=== PATIENT | male | born 1980 | race African-American/Black ===

== ENCOUNTER 2022-09-01 01:36 | Day surgery (SDC) | payer OTHER, SELFPAY ==
[2022-08-30 13:07] VITALS: BMI 35.8
--- NOTE | 2022-09-01 07:55 | PM.HPGS ---
History of Present Illness History of Present Illness Consent: Risks, benefits, and alternatives have been discussed and questions answered. Patient agrees to proceed with procedure. Chief complaint: melena, GERD, anemia Narrative: Kamaljit Holcomb is a 42 year old male with olya, never had scopes. Review of Systems Constitutional: Constitutional: Denies headache(s) and Denies weakness Eyes: Eyes: Denies blurry vision ENT: Reports Normal hearing present, Denies headache(s) and Denies neck pain Cardiovascular: Cardiovascular: Denies chest pain and Denies dyspnea Respiratory: Respiratory: Denies dyspnea Gastrointestinal: Gastrointestinal: Reports no additional gastrointestinal complaints Genitourinary: Genitourinary: Denies dysuria Musculoskeletal: Musculoskeletal: Denies neck pain Integumentary/Breasts: Skin/Breast: Denies dry skin Neurologic: Reports Normal hearing present, Denies headache(s) and Denies weakness Psychiatric: Psychiatric: Denies anxiety Endocrine: Endocrine: Denies change in body appearance Hematologic/Lymphatic: Hematologic/Lymphatic: Denies easy bleeding Allergic/Immunologic: Allergic/Immunologic: Denies urticaria PMFSH Past Medical History Medical History (Updated 09/01/22 @ 07:55 by Tristen Ruiz MD) Iron deficiency anemia Meds Home Medications and Allergies Home Medications Medication Instructions Recorded Confirmed Type amlodipine 5 mg tablet 5 mg PO DAILY 08/30/22 08/30/22 History aspirin 81 mg tablet 81 mg PO DAILY 08/30/22 08/30/22 History atorvastatin 40 mg tablet 40 mg PO DAILY 08/30/22 08/30/22 History cholecalciferol (vitamin D3) 1,250 1,250 mcg PO WEEKLY 08/30/22 08/30/22 History mcg (50,000 unit) capsule hydrochlorothiazide 12.5 mg capsule 12.5 mg PO DAILY 08/30/22 08/30/22 History insulin NPH, beef-pork 100 unit/mL 30 unit subcut QAM 08/30/22 08/30/22 History subcutaneous suspension insulin NPH, beef-pork 100 unit/mL 40 unit subcut QPM 08/30/22 08/30/22 History subcutaneous suspension insulin regular human 100 unit/mL 1 sliding scale dose subcut 08/30/22 08/30/22 History injection solution USEASDIRECTD lisinopril 40 mg tablet 40 mg PO DAILY 08/30/22 08/30/22 History metformin 1,000 mg tablet 1,000 mg PO BID 08/30/22 08/30/22 History oxcarbazepine 600 mg tablet 600 mg PO BID 08/30/22 08/30/22 History vitamin A and D 1 applic topical DAILY 08/30/22 08/30/22 History Allergies Allergy/AdvReac Type Severity Reaction Status Date / Time No Known Allergies Allergy Verified 08/30/22 13:09 Exam Const: General: comfortable and no acute distress HENMT: Face/Nose/Sinus: Normal nares present Eyes: General: appearance normal, both eyes and all related structures Neck: Neck: no JVD Resp: Auscultation: clear to auscultation bilaterally Cardio: Rate: regular rate Rhythm: regular rhythm GI: Inspection: non-distended GI Palp: Yes Soft to palpation Skin: General skin exam: normal color Neuro: General: gait normal Speech: normal speech Extrem: General: normal to inspection Psych: Mental Status: mental status grossly normal Assessment and Plan Assessment and plan (1) Iron deficiency anemia: Code(s): D50.9 - Iron deficiency anemia, unspecified Status: Acute Assessment and Plan: egd and colonoscopy to assess if gi blood loss
[2022-09-01 08:01] VITALS: BP 161/90; PULSE 81; RESP 17; TEMP 36.3; O2SAT 100; BMI 34.4
[2022-09-01 08:01] LABS: Glucose Point of Care 115 mg/dl (65-105)
[2022-09-01] MEDS: LACTATED RINGERS 1,000 ML 150 ML IV CONT (08:10)
--- NOTE | 2022-09-01 08:13 | P.PNAN_ITS ---
Anes - Initial Pre Proc Eval Procedure: Operation Date: 09/01/22 08:30 Proposed Procedures p Esophagogastroduodenoscopy & Colonoscopy - Tristen Ruiz MD Date/Time: 09/01/22 08:13 Surgeon: Tristen Ruiz MD Pre Op Diagnosis: melena, GERD, anemia Patient Data Age: 42 Gender: M Height: 1.7 m Weight: 99.6 kg Last Vital Signs Temp 97.3 F L 09/01/22 08:01 Pulse 81 09/01/22 08:01 Resp 17 09/01/22 08:01 BP 161/90 H 09/01/22 08:01 Pulse Ox 100 09/01/22 08:01 O2 Del Method Room Air 09/01/22 08:01 Allergies Allergy/AdvReac Type Severity Reaction Status Date / Time No Known Allergies Allergy Verified 08/30/22 13:09 Home Medications Medication Instructions Recorded Confirmed Type amlodipine 5 mg tablet 5 mg PO DAILY 08/30/22 08/30/22 History aspirin 81 mg tablet 81 mg PO DAILY 08/30/22 08/30/22 History atorvastatin 40 mg tablet 40 mg PO DAILY 08/30/22 08/30/22 History cholecalciferol (vitamin D3) 1,250 1,250 mcg PO WEEKLY 08/30/22 08/30/22 History mcg (50,000 unit) capsule hydrochlorothiazide 12.5 mg capsule 12.5 mg PO DAILY 08/30/22 08/30/22 History insulin NPH, beef-pork 100 unit/mL 30 unit subcut QAM 08/30/22 08/30/22 History subcutaneous suspension insulin NPH, beef-pork 100 unit/mL 40 unit subcut QPM 08/30/22 08/30/22 History subcutaneous suspension insulin regular human 100 unit/mL 1 sliding scale dose subcut 08/30/22 08/30/22 History injection solution USEASDIRECTD lisinopril 40 mg tablet 40 mg PO DAILY 08/30/22 08/30/22 History metformin 1,000 mg tablet 1,000 mg PO BID 08/30/22 08/30/22 History oxcarbazepine 600 mg tablet 600 mg PO BID 08/30/22 08/30/22 History vitamin A and D 1 applic topical DAILY 08/30/22 08/30/22 History Laboratory Tests 09/01/22 07:58 POC Capillary Glucose 115 mg/dl H mg/dl (65-105) Patient hx anesthesia problems: none Family hx anesthesia problems: none Results Review: All pre-operative results and documents have been reviewed as part of the pre- operative evaluation. [facility] Past Medical History Medical History (Updated 09/01/22 @ 07:55 by Tristen Ruiz MD) Iron deficiency anemia Anes - Eval Final PreProcedure Day of Procedure 09/01/22 08:13 Patient weight: obese Heart: regular rate and rhythm Lungs: clear to auscultation Airway: Mallampati scale class II Neurological: alert and oriented Last oral intake: >/= 8 hours ASA classification: III Emergent: no Anesthetic plan: proceed Anesthesia type and monitoring: general GIVS and standard monitoring Results Review: All pre-operative results and documents have been reviewed as part of the pre-operative evaluation. Informed Consent: The patient's anesthetic plan and its attendant risks and benefits were discussed with the patient/family/POA. Questions were solicited and answers provided to the satisfaction of the patient/family/POA.
--- NOTE | 2022-09-01 08:39 | SUR.OPER ---
egd ended at 823, colonoscopy started at 828
[2022-09-01 08:43] VITALS: BP 119/80; PULSE 75; RESP 16; O2SAT 99
[2022-09-01 08:53] VITALS: BP 134/91; PULSE 77; RESP 22; O2SAT 99
[2022-09-01 09:03] VITALS: BP 130/88; PULSE 72; RESP 22; O2SAT 99
[2022-09-01 09:05] LABS: Glucose Point of Care 128 mg/dl (65-105)
== END 2022-09-01 09:11 | disposition home or self-care (01) ==
PROVIDERS: Visit Provider Internal Medicine Gastroenterology
PROC: 0DJ08ZZ Inspection of Upper Intestinal Tract, Via Natural or Artificial Opening Endoscopic (ICD-10-PCS; CPT 43235; principal; 2022-09-01 08:30)
DX: D50.9 Iron deficiency anemia, unspecified (principal); D12.0 Benign neoplasm of cecum; K29.70 Gastritis, unspecified, without bleeding; K92.1 Melena; Z79.82 Long term (current) use of aspirin; Z79.4 Long term (current) use of insulin; Z79.84 Long term (current) use of oral hypoglycemic drugs; E66.9 Obesity, unspecified; Z68.34 Body mass index [BMI] 34.0-34.9, adult
CPT/HCPCS: 45385; 43239; 82948; 87081; 88305; J2704; J7120